=== PATIENT | male | born 1975 ===

== ENCOUNTER 2023-01-05 11:36 | Emergency (ER) | payer OTHER, SELFPAY ==
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
[2023-01-05 11:56] VITALS: BP 150/118; PULSE 83; RESP 18; TEMP 37.1; O2SAT 98
== END 2023-01-05 12:08 | disposition home or self-care (01) ==
LOC: ER 12:17
PROVIDERS: Emergency Provider Emergency Medicine Emergency Medical Services
DX: Z04.1 Encounter for examination and observation following transport accident (principal); V48.5XXA Car driver injured in noncollision transport accident in traffic accident, initial encounter
CPT/HCPCS: 99282